=== PATIENT | male | born 1980 | race Caucasian/White ===

== ENCOUNTER 2019-03-16 08:27 | Emergency (ER) | payer BC, OTHER ==
[2019-03-16] MEDS ORDERED: Ibuprofen TAB* 600 MG PO ONE (08:36)
--- NOTE | 2019-03-16 08:41 | ED ---
Lower Extremity - HPI Summary HPI Summary: Pt. is a 39 y.o male who presents to the ER for a left ankle injury that occurred this morning. Pt. states he was on a run this morning when he inverted his left ankle. Pt. states he is unable to bare weight secondary to pain. Sxs are mild in severity. Walking makes sxs worse. Rest makes sxs better, - History of Current Complaint Chief Complaint: EDExtremityLower Stated Complaint: LEFT ANKLE PAIN Time Seen by Provider: 03/16/19 08:32 Hx Obtained From: Patient Pain Intensity: 7 - Allergies/Home Medications Allergies/Adverse Reactions: Allergies Allergy/AdvReac Type Severity Reaction Status Date / Time No Known Allergies Allergy Verified 03/16/19 08:32 PMH/Surg Hx/FS Hx/Imm Hx Previously Healthy: Yes Infectious Disease History: No Infectious Disease History: Denies: Traveled Outside the in Last 30 Days - Family History Known Family History: Positive: Non-Contributory - Social History Occupation: Employed Full-time Lives: With Family Alcohol Use: Occasionally Substance Use Type: Reports: None Smoking Status (MU): Current Every Day Smoker Type: Cigarettes Review of Systems Positive: Other - left ankle pain Skin: Negative Positive: Paresthesia All Other Systems Reviewed And Are Negative: Yes Physical Exam Triage Information Reviewed: Yes Vital Signs On Initial Exam: Initial Vitals Temp Pulse Resp BP Pulse Ox 97.2 F 77 18 140/94 99 03/16/19 08:28 03/16/19 08:28 03/16/19 08:28 03/16/19 08:28 03/16/19 08:28 Vital Signs Reviewed: Yes Appearance: Positive: Well-Appearing - Pt. lying in bed in NAD. Skin: Positive: Warm, Dry Head/Face: Positive: Normal Head/Face Inspection Eyes: Positive: Normal, EOMI Neck: Positive: Supple Musculoskeletal: Positive: Other - Mild edema and pain over left lateral malleolus. Good pedal pulse. No pain to base of 5th metatarsal. No tib/fib or knee pain. Achilles tendon intact. Neurological: Positive: Normal, CN Intact II-III Diagnostics - Vital Signs Vital Signs Temp Pulse Resp BP Pulse Ox 03/16/19 08:28 97.2 F 77 18 140/94 99 - Laboratory Lab Statement: Any lab studies that have been ordered have been reviewed, and results considered in the medical decision making process. Lower Extremity Course/Dx - Course Course Of Treatment: Pt. presenting for isolated ankle injury. Pt. took motrin [employer] D[employer]ER. Xrays shows soft tissue edema without fracture or dislocation, reading per radiology. Patient placed for comfort. Advised ice and elevate. Ibuprofen for pain and swelling as directed. Will follow-up with his Workmen's Compensation physician for further care. - Diagnoses Differential Diagnosis/HQI/PQRI: Positive: Contusion, Dislocation, Fracture ( Closed), Sprain, Strain Provider Diagnoses: Ankle sprain Discharge - Sign-Out/Discharge Documenting (check all that apply): Patient Departure Patient Received Moderate/Deep Sedation with Procedure: No - Discharge Plan Condition: Good Disposition: HOME Patient Education Materials: Ankle Sprain (ED) Referrals: Mariusz QUEZADA,Mark Nolan [Primary Care Provider] - Additional Instructions: Follow up with PCP within 1 week for recheck Ice and elevate intermittently Ibuprofen for pain as directed Splint for comfort Return to ER if symptoms change or worsen - Billing Disposition and Condition Condition: GOOD Disposition: Home - Attestation Statements Provider Attestation: I was available for consult. This patient was seen by the RADHA. The patient was not presented to, seen by, or examined by me. -Gloria
[2019-03-16 09:57] VITALS: BP 139/87
== END 2019-03-16 09:56 | disposition home or self-care (01) ==
LOC: ED 08:27
DX: S93.402A Sprain of unspecified ligament of left ankle, initial encounter (principal); X50.9XXA Other and unspecified overexertion or strenuous movements or postures, initial encounter; Y93.02 Activity, running; F17.210 Nicotine dependence, cigarettes, uncomplicated
CPT/HCPCS: 99282; A9270-GY